=== PATIENT | female | born 1985 | race Caucasian/White ===

== ENCOUNTER → 2017-03-22 | Outpatient (CLI) | payer BC ==
[~2017-03-22] MED LIST: AMOXICILLIN 50500 MG PO; MOTRIN 600600 MG/TAB PO; PERCOCET 325 MG1 TA2 PO; PRENATAL1 TA1 PO; TYLENOL PM EXTR1 TA1 PO
== END ==
LOC: COL.CARD 08:00
DX: R00.2 Palpitations (principal)

== ENCOUNTER → 2019-11-03 | Outpatient (CLI) | payer BC | LOC: ZCOL.LAB 12:58 | DX: U07.1 COVID-19 (principal) ==

== ENCOUNTER → 2022-11-13 | Outpatient (CLI) | payer OTHER | LOC: COL.RAD 11-12 15:45 | DX: R59.1 Generalized enlarged lymph nodes (principal) ==